=== PATIENT | male | born 1990 | race Caucasian/White ===

== ENCOUNTER 2017-05-09 14:37 | Emergency (ER) | payer MEDICARE, MEDICAID ==
[~2017-05-09] VITALS: Ht 165.1 cm; Wt 70.0 kg
[~2017-05-09 14:37] MED LIST: CITA40 PO; CLON.1 PO; DIVA500 PO; OLAN5 PO
[2017-05-09 14:49] VITALS: BP 111/73; PULSE 84; RESP 18; TEMP 98.9; O2SAT 98
--- NOTE | 2017-05-09 14:51 | PD ---
Physical Exam Date Seen by Provider: May 09, 2017 Time Seen by Provider: 14:48 Narrative 27 y/o male with Hx. Bipolar disorder brought in via EMS S/P fall at his senior living. No LOC. No HAGAN. No C/O pain or other injury. Vital signs reviewed. Patient stable. Awaiting Bed placement. [facility] Medical Record Reviewed: Yes Supervised Visit with ARMIDA: Yes Condition: Stable Miguel Angel Lopez May 09, 2017 14:51
--- NOTE | 2017-05-09 17:31 | PD ---
HPI Chief Complaint: Fall Time Seen by Provider: 17:30 Travel History International Travel<30 days: No Contact w/Intl Traveler<30days: No Traveled to known affect area: No History of Present Illness HPI 27-year-old male presents to emergency department with complaint of a numbness and tingling sensation in his head with dizziness, and change in vision that led him to stumble and fall over hitting the right side of his face at approximately 12 PM today. Denies loss of consciousness. He is resident at [facility]. His symptoms have already subsided and patient has no current complaints, except for right-sided facial pain from where he hit his face. There are no abrasions, lacerations, swelling to the area where the patient says he hit his face. He denies numbness and tingling of his head, dizziness, change in vision at this time. Denies headache, lightheadedness. Denies nausea, vomiting. Denies neck pain or back pain. Denies chest pain, shortness of breath. He denies history of hydrocephalus. Has not taken any medications or tried any treatment to alleviate his symptoms. Symptoms are mild in severity. Has no other medical complaints. No other modifying factors or associated signs and symptoms. PFSH Past Medical History ADHD: Yes Bipolar Disorder: Yes Anxiety: Yes Depression: Yes Cardiovascular Problems: No (See EMR) Diminished Hearing: No Genitourinary: No Immune Disorder: No Neurologic: Yes Psychiatric: Yes (Schizophrenia) Reproductive: No Respiratory: No Schizophrenia: Yes Tetanus Vaccination: < 5 Years ?: Not Past Surgical History Other Surgery: No Social History Alcohol Use: No Tobacco Use: No Substance Use: Yes (THC) Allergies-Medications (Allergen,Severity, Reaction): Coded Allergies: Abilify (Verified Allergy, Severe, 05/09/17) Penicillin (Verified Allergy, Severe, 05/09/17) Reported Meds & Prescriptions Reported Meds & Active Scripts Active Reported Olanzapine 10 Mg Tab 10 Mg PO BID Enalapril (Enalapril Maleate) 5 Mg Tab 5 Mg PO DAILY Docusate Sodium 100 Mg Cap 100 Mg PO DAILY Divalproex ER (Divalproex Sodium) 500 Mg Tab 500 Mg PO DAILY Diphenhydramine (Diphenhydramine HCl) 25 Mg Cap 50 Mg PO HS PRN Citalopram (Citalopram Hydrobromide) 40 Mg Tab 40 Mg PO DAILY Review of Systems Except as stated in HPI: all other systems reviewed are Neg Physical Exam Narrative GENERAL: Well-nourished, well-developed male patient, in no acute distress SKIN: Warm and dry. HEAD: Atraumatic. Normocephalic. No facial or scalp abrasions or lacerations noted. No facial edema noted. No facial droop noted. Tongue midline. Nose to finger test normal. EYES: Pupils equal and round at 3 mm with brisk reaction. No scleral icterus. No injection or drainage. No raccoon eyes. No orbital tenderness on palpation bilaterally. ENT: Mucosa pink and moist. No erythema or exudates. No uvular edema. No uvular , palatal, or tonsillar deviation. Airway patent. Nares without nasal blood, purulent drainage or septal hematoma. No rhinorrhea. EARS: Bilateral pinnae and external canals appear within normal limits. Bilateral tympanic membranes without erythema, dullness, hemotympanum or perforation. No otorrhea. No feldman signs. NECK: Moving freely. Trachea midline. No lymphadenopathy. Active rotation of the neck greater than 45 left and right. No midline point tenderness on palpation of the cervical spine. No obvious deformities. CHEST: No retractions or use of accessory muscles. CARDIOVASCULAR: Regular rate and rhythm. No murmur appreciated. RESPIRATORY: No accessory muscle use. Clear to auscultation. Breath sounds equal bilaterally. GASTROINTESTINAL: Flat. MUSCULOSKELETAL: No obvious deformities. No clubbing. No cyanosis. No edema. BACK: No midline Point tenderness on palpation of the lumbar or thoracic spine. No obvious deformities. Patient sitting up in bed at 90. Ambulatory in the room with normal gait. NEUROLOGICAL: Awake and alert. Oriented 4. No obvious cranial nerve deficits. Motor grossly within normal limits. Normal speech. No midline drift. No ataxia. Moves all extremities. 5/5 strength to all extremities. Sensory intact. PSYCHIATRIC: Appropriate mood and affect; insight and judgment normal. Data Data Last Documented VS Vital Signs Date Time Temp Pulse Resp B/P Pulse Ox O2 Delivery O2 Flow Rate FiO2 05/09/17 14:49 98.9 84 18 111/73 98 Orders Electrocardiogram (05/09/17 ) MDM Medical Decision Making Medical Screen Exam Complete: Yes Emergency Medical Condition: Yes Medical Record Reviewed: Yes Differential Diagnosis Near syncope, syncope, electrolyte imbalance Narrative Course 27-year-old male with near syncopal episode today. When he fell he hit the right side of his face and denies loss of consciousness. Neuro exam is unremarkable. I spoke with Dr. mcleod, my attending physician, and he recommended EKG. EKG ordered. 1744: Dr. Hidalgo called and said the EKG has some abnormal findings. Dr. Hidalgo is going to talk to Dr. madera and call me back with the plan of care. 1754: Dr. Coleman spoke with Dr. madera and is recommending outpatient follow-up with Dr. Dominguez, supervisor joiners for outpatient Holter monitoring and industrial welder for conduction abnormalities found on EKG. This was discussed with the patient and he verbalized understanding and agreement. [facility] Instructed patient to follow up with primary care provider. Patient verbalizes understanding and agreement with treatment plan. Patient is medically cleared and stable for discharge. Discussed reasons to return to the emergency department. Patient agrees with treatment plan. The patients vital signs are stable and the patient is stable for outpatient follow-up and treatment. Patient discharged home, stable and in no acute distress. Diagnosis Primary Impression: Near syncope Additional Impression: Abnormal EKG Referrals: Candelario Borges MD Can Reconditioner Primary Care Physician Patient Instructions: General Instructions, Near Syncope (ED) Additional Instructions: Follow-up with Dr. Dominguez, supervisor joiners for outpatient Holter monitor Follow-up with industrial welder for conduction abnormalities on EKG Follow-up with primary care provider Return to the emergency department immediately with worsening of symptoms , Med/Other Pt SpecificInfo: No Meds Exist/No RX given Disposition: 01 DISCHARGE HOME Condition: Stable Ale Chavez May 09, 2017 17:30 Ale Chavez May 09, 2017 17:30
[2017-05-09] MEDS ORDERED: CITA40TA4 PO (17:32)
[2017-05-09] MEDS ORDERED: DIPH25CA PO (17:32)
[2017-05-09] MEDS ORDERED: ENAL5TAB PO (17:32)
[2017-05-09] MEDS ORDERED: OLAN10TA PO (17:32)
[2017-05-09] MEDS ORDERED: DIVA500T3 PO (17:32)
[2017-05-09] MEDS ORDERED: DOCU100C PO (17:32)
--- NOTE | 2017-05-09 17:57 | PD ---
Data Data Last Documented VS Vital Signs Date Time Temp Pulse Resp B/P Pulse Ox O2 Delivery O2 Flow Rate FiO2 05/09/17 14:49 98.9 84 18 111/73 98 Orders Electrocardiogram (05/09/17 ) [facility] Supervised Visit with ARMIDA: Yes Narrative Course The history, exam, and medical decision-making in the associated mid-level provider note were completed with my assistance. I reviewed and agree with the findings presented. I attest that I had a [id number] encounter with the patient on the same day, and personally performed and documented my assessment and findings in the medical record. *My assessment and Findings: 27 year old man with near syncope type symptoms. He coughs enough that he hit his face. He denies losing consciousness completely. He looks overall well. He has a history of schizophrenia resides in a nursing facility. His EKG is significant for 1. To be a shortened OR interval with delta wave noticeable in several leads. He does have a little bit of ectopy as well. This may represent true WPW. It's unclear if this is related to his new significant symptoms or not. Nonetheless, I discussed with Dr. madera, personal carer for cardiology. Will recommend close outpatient follow cardiology, Holter monitor, EP referral. Diagnosis Primary Impression: Near syncope Additional Impression: Abnormal EKG Condition: Stable Oseas Hidalgo MD May 09, 2017 17:57
--- NOTE | 2017-05-10 15:44 | EKG ---
Date Performed: 05/09/2017 Time Performed: 17:38:51 PTAGE: 27 years EKG: Sinus rhythm INTERMITTENT VENTRICULAR PREEXCITATION/WPW NONSPECIFIC ST ELEVATION ABNORMAL ECG PREVIOUS TRACING : 04/26/2016 16.53 DOCTOR: Candelario Borges Interpretating Date/Time 05/10/2017 15:40:37
== END 2017-05-09 18:35 | disposition home or self-care (01) ==
LOC: NEPK 14:37
DX: R55 Syncope and collapse (principal); R94.31 Abnormal electrocardiogram [ECG] [EKG]; R20.0 Anesthesia of skin; R20.2 Paresthesia of skin; R42 Dizziness and giddiness; R51 Headache; F31.9 Bipolar disorder, unspecified; F90.9 Attention-deficit hyperactivity disorder, unspecified type; F20.9 Schizophrenia, unspecified
CPT/HCPCS: 93005; 99283

== ENCOUNTER 2017-06-06 11:04 | Emergency (ER) | payer MEDICARE, MEDICAID ==
[~2017-06-06] VITALS: Ht 162.6 cm; Wt 71.5 kg
[~2017-06-06 11:04] MED LIST changes: -CITA40 PO; +CITA40TA4 PO; -CLON.1 PO; +DIPH25CA PO; -DIVA500 PO; +DIVA500T3 PO; +DOCU100C PO; +ENAL5TAB PO; +OLAN10TA PO; -OLAN5 PO
[2017-06-06 11:14] VITALS: BP 117/74; PULSE 99; RESP 19; TEMP 98.3; O2SAT 96
--- NOTE | 2017-06-06 11:18 | PD ---
HPI . BA suicidal behavior Chief Complaint: Psychiatric Symptoms Time Seen by Provider: 11:18 Travel History International Travel<30 days: No Contact w/Intl Traveler<30days: No Traveled to known affect area: No History of Present Illness HPI 27-year-old male with history of schizophrenia here under Quinn act for suicidal behavior. Patient resides in assisted living facility and was found with a extension cord around his neck. It was believed by the personnel that he was trying to commit suicide. Patient tells me that he is going through a tough breakup. He recently was dumped by his ex-girlfriend who is now dating his best friend. He tells me has a new girlfriend, however he really wishes that it was his prior girlfriend. He tells me has no suicidal or homicidal thoughts. He says he is sad about the breakup, and was only trying to force himself to pass out so that he could rest instead of thinking about the loss of his ex-girlfriend. He tells me he is not suicidal and is not homicidal. He says he is a very caring and compassionate person and it does not want to harm anyone. He denies any illegal drug use. PFSH Past Medical History ADHD: Yes Bipolar Disorder: Yes Anxiety: Yes Depression: Yes Cardiovascular Problems: No (See EMR) Diminished Hearing: No Genitourinary: No Immune Disorder: No Neurologic: Yes Psychiatric: Yes (Schizophrenia) Reproductive: No Respiratory: No Schizophrenia: Yes Past Surgical History Other Surgery: No Social History Alcohol Use: No Tobacco Use: No Substance Use: Yes (THC) Allergies-Medications (Allergen,Severity, Reaction): Coded Allergies: aripiprazole (Unverified Allergy, Severe, 06/06/17) penicillin G (Unverified Allergy, Severe, 06/06/17) Reported Meds & Prescriptions Reported Meds & Active Scripts Active Reported Olanzapine 10 Mg Tab 10 Mg PO BID Enalapril (Enalapril Maleate) 5 Mg Tab 5 Mg PO DAILY Docusate Sodium 100 Mg Cap 100 Mg PO DAILY Divalproex ER (Divalproex Sodium) 500 Mg Tab 500 Mg PO DAILY Diphenhydramine (Diphenhydramine HCl) 25 Mg Cap 50 Mg PO HS PRN Citalopram (Citalopram Hydrobromide) 40 Mg Tab 40 Mg PO DAILY Review of Systems General / Constitutional: No: Fever Eyes: No: Visual changes HENT: No: Headaches Cardiovascular: No: Chest Pain or Discomfort Respiratory: No: Shortness of Breath Gastrointestinal: No: Abdominal Pain Genitourinary: No: Dysuria Musculoskeletal: No: Pain Skin: No Rash Neurologic: No: Weakness Psychiatric: Positive: Suicidal Ideations, Disorder of Thought, No: Depression Endocrine: No: Polydipsia Hematologic/Lymphatic: No: Easy Bruising Physical Exam Narrative GENERAL: AAO x 3, no acute distress, Well-nourished, well-developed patient. SKIN: Warm and dry. No visible rashes. slight erythema around the neck HEAD: Normocephalic and atraumatic. EYES: No scleral icterus. No injection or drainage. EOM intact, PERRLA ENT: No nasal drainage noted. Mucous membranes pink. Airway patent. NECK: Supple, trachea midline. No JVD. No lymphadenopathy CARDIOVASCULAR: Regular rate and rhythm without murmurs, gallops, or rubs. RESPIRATORY: Breath sounds equal bilaterally. No accessory muscle use. No rhonchi or rales. GASTROINTESTINAL: Abdomen soft, non-tender, nondistended. No rebound or guarding EXTREMITIES: No cyanosis or edema. BACK: No obvious deformity. No CVA tenderness. NEURO: CN II-12 intact, burr filer strength normal b/l, UE and LE 5/5, no focal deficits PSYCH: AAO x 3, normal affect. Data Data Last Documented VS Vital Signs Date Time Temp Pulse Resp B/P (MAP) Pulse Ox O2 Delivery O2 Flow Rate FiO2 06/06/17 11:21 98.3 99 19 117/74 (88) 96 Room Air Orders Orders Complete Blood Count With Diff (06/06/17 11:18) Comprehensive Metabolic Panel (06/06/17 11:18) Psych Screen (06/06/17 11:18) Drug Screen, Random Urine (06/06/17 11:18) ^ Sitter (06/06/17 11:41) Diet Regular Basic (06/06/17 Lunch) Labs Laboratory Tests Test 06/06/17 11:30 White Blood Count 9.6 TH/MM3 Red Blood Count 4.89 MIL/MM3 Hemoglobin 16.3 GM/DL Hematocrit 47.0 % Mean Corpuscular Volume 96.1 FL Mean Corpuscular Hemoglobin 33.2 PG Mean Corpuscular Hemoglobin Concent 34.6 % Red Cell Distribution Width 13.0 % Platelet Count 188 TH/MM3 Mean Platelet Volume 10.0 FL CBC Comment AUTO DIFF Differential Total Cells Counted 100 Neutrophils % (Manual) 75 % Band Neutrophils % 4 % Lymphocytes % 13 % Monocytes % 7 % Eosinophils % 1 % Neutrophils # (Manual) 7.6 TH/MM3 Differential Comment FINAL DIFF MANUAL Platelet Estimate NORMAL Platelet Morphology Comment NORMAL Red Cell Morphology Comment NORMAL Blood Urea Nitrogen 6 MG/DL Creatinine 0.86 MG/DL Random Glucose 93 MG/DL Total Protein 8.6 GM/DL Albumin 3.7 GM/DL Calcium Level 9.4 MG/DL Alkaline Phosphatase 72 U/L Aspartate Amino Transf (AST/SGOT) 25 U/L Alanine Aminotransferase (ALT/SGPT) 30 U/L Total Bilirubin 0.2 MG/DL Sodium Level 141 MEQ/L Potassium Level 4.2 MEQ/L Chloride Level 106 MEQ/L Carbon Dioxide Level 27.1 MEQ/L Anion Gap 8 MEQ/L Estimat Glomerular Filtration Rate 108 ML/MIN Urine Opiates Screen NEG Urine Barbiturates Screen NEG Urine Amphetamines Screen NEG Urine Benzodiazepines Screen NEG Urine Cocaine Screen NEG Urine Cannabinoids Screen NEG MDM Medical Decision Making Medical Screen Exam Complete: Yes Emergency Medical Condition: Yes Medical Record Reviewed: Yes Differential Diagnosis suicidal ideation, schizophrenia, depression Narrative Course 27-year-old male here under Quinn act for suicidal behavior. On examination there are no gross abnormalities. I recommend labs and toxicology screen. If they're within normal limits, patient will be medically cleared for psych screen. Diagnosis Primary Impression: Suicidal behavior Qualified Codes: T14.91 - Suicide attempt Condition: Stable Rohini Roblero Jun 06, 2017 11:18
[2017-06-06 11:21] VITALS: BP 117/74; PULSE 99; RESP 19; TEMP 98.3; O2SAT 96
[2017-06-06 12:00] LABS: MEAN CELL VOLUME 96.1 FL (80.0-100.0); MEAN CORPUSCULAR HEMOGLOBIN 33.2 PG (27.0-34.0); MEAN CORPUSCULAR HGB CONC 34.6 % (32.0-36.0); PLATELET COUNT 188 TH/MM3 (150-450); RED BLOOD COUNT 4.89 MIL/MM3 (4.50-5.90); WHITE BLOOD COUNT 9.6 TH/MM3 (4.0-11.0)
[2017-06-06 12:03] LABS: HEMO FLAGS AUTO DIFF
[2017-06-06 12:13] LABS: ALT (GPT) 30 U/L (12-78); ANION GAP 8 MEQ/L (5-15); AST (GOT) 25 U/L (15-37); BICARBONATE 27.1 MEQ/L (21.0-32.0); BLOOD UREA NITROGEN 6 MG/DL (7-18); CHLORIDE 106 MEQ/L (98-107); GLOMERULAR FILTRATION RATE 108 ML/MIN (>89); POTASSIUM 4.2 MEQ/L (3.5-5.1); SODIUM (NA) 141 MEQ/L (136-145)
[2017-06-06 12:15] LABS: ALKALINE PHOSPHATASE 72 U/L (45-117); TOTAL BILIRUBIN ADULT 0.2 MG/DL (0.2-1.0)
[2017-06-06 12:39] LABS: BANDS 4 % (0-6); EOSINOPHILS 1 % (0-4); NEUTROPHIL # MANUAL DIFF 7.6 TH/MM3 (1.8-7.7); PLATELET ESTIMATE SMEAR NORMAL (NORMAL); PLATELET MORPHOLOGY NORMAL (NORMAL); POLYS (SEG NEUTROPHILS) 75 % (16-70); SCAN/DIFF FINAL DIFF MANUAL; WBC DIFF SAMPLE 100
[2017-06-06] MEDS ORDERED: OLAN5TAB PO (13:12)
[2017-06-06 16:47] VITALS: BP 115/65
[2017-06-06 18:00] VITALS: BP 96/53; PULSE 64; RESP 16; O2SAT 96
[2017-06-06] MEDS ORDERED: diphenhydrAMINE HCL 50 MG CAP PO PRN (18:00)
[2017-06-06] MEDS: DIVALPROEX SODIUM E.R. 500 MG TAB PO SCH (20:58)
[2017-06-06] MEDS: OLANZapine 10 MG TAB PO SCH (20:58)
[2017-06-06 22:03] VITALS: BP 94/52; PULSE 57; RESP 18; O2SAT 98
[2017-06-07 02:31] VITALS: BP 104/59; PULSE 64; RESP 16; O2SAT 98
[2017-06-07] MEDS ORDERED: CITALOPRAM HYDROBROMIDE 40 MG TAB PO SCH (09:00)
[2017-06-07] MEDS ORDERED: ENALAPRIL MALEATE 5 MG TAB PO SCH (09:00)
[2017-06-07] MEDS ORDERED: DOCUSATE SODIUM 100 MG CAP PO SCH (09:00)
[2017-06-07] MEDS: DIVALPROEX SODIUM E.R. 500 MG TAB PO SCH (09:15)
[2017-06-07] MEDS: OLANZapine 10 MG TAB PO SCH (09:15)
[2017-06-07 12:40] VITALS: BP 98/56; PULSE 72; RESP 20; TEMP 93
--- NOTE | 2017-06-07 13:26 | PD ---
Physical Exam Time Seen by Provider: 13:[address] Tillman has evaluated this patient and lifted the Quinn act and the patient will be discharged to [facility]. Data Data Last Documented VS Vital Signs Date Time Temp Pulse Resp B/P (MAP) Pulse Ox O2 Delivery O2 Flow Rate FiO2 06/07/17 12:40 93.0 72 20 98/56 (70) 06/07/17 02:31 98 06/06/17 18:00 Room Air Orders Orders Complete Blood Count With Diff (06/06/17 11:18) Comprehensive Metabolic Panel (06/06/17 11:18) Psych Screen (06/06/17 11:18) Drug Screen, Random Urine (06/06/17 11:18) ^ Sitter (06/06/17 11:41) Diet Regular Basic (06/06/17 Lunch) Citalopram (Celexa) (06/07/17 09:00) Diphenhydramine (Benadryl) (06/06/17 18:00) Divalproex Er (Depakote Er) (06/06/17 21:00) Docusate Sodium (Colace) (06/07/17 09:00) Enalapril (Vasotec) (06/07/17 09:00) Olanzapine (Zyprexa) (06/06/17 21:00) Diet Regular Basic (06/07/17 Breakfast) Diet Regular Basic (06/07/17 Lunch) Labs Laboratory Tests Test 06/06/17 11:30 White Blood Count 9.6 TH/MM3 Red Blood Count 4.89 MIL/MM3 Hemoglobin 16.3 GM/DL Hematocrit 47.0 % Mean Corpuscular Volume 96.1 FL Mean Corpuscular Hemoglobin 33.2 PG Mean Corpuscular Hemoglobin Concent 34.6 % Red Cell Distribution Width 13.0 % Platelet Count 188 TH/MM3 Mean Platelet Volume 10.0 FL CBC Comment AUTO DIFF Differential Total Cells Counted 100 Neutrophils % (Manual) 75 % Band Neutrophils % 4 % Lymphocytes % 13 % Monocytes % 7 % Eosinophils % 1 % Neutrophils # (Manual) 7.6 TH/MM3 Differential Comment FINAL DIFF MANUAL Platelet Estimate NORMAL Platelet Morphology Comment NORMAL Red Cell Morphology Comment NORMAL Blood Urea Nitrogen 6 MG/DL Creatinine 0.86 MG/DL Random Glucose 93 MG/DL Total Protein 8.6 GM/DL Albumin 3.7 GM/DL Calcium Level 9.4 MG/DL Alkaline Phosphatase 72 U/L Aspartate Amino Transf (AST/SGOT) 25 U/L Alanine Aminotransferase (ALT/SGPT) 30 U/L Total Bilirubin 0.2 MG/DL Sodium Level 141 MEQ/L Potassium Level 4.2 MEQ/L Chloride Level 106 MEQ/L Carbon Dioxide Level 27.1 MEQ/L Anion Gap 8 MEQ/L Estimat Glomerular Filtration Rate 108 ML/MIN Urine Opiates Screen NEG Urine Barbiturates Screen NEG Urine Amphetamines Screen NEG Urine Benzodiazepines Screen NEG Urine Cocaine Screen NEG Urine Cannabinoids Screen NEG MDM Supervised Visit with ARMIDA: No Narrative Course Dr. Tillman has evaluated this patient and lifted the Quinn act and the patient will be discharged to [facility], where he resides. The patient has contracted safety to both Dr. Tillman and the nurse. He denies suicidal or homicidal ideations at this time. The patient is mentally delayed and acts out a lot, according to the nurse. She has spoken with [facility] and they have no concerns of the patient returning to the facility. Patient is medically cleared for discharge. Diagnosis Primary Impression: Suicidal behavior Qualified Codes: T14.91 - Suicide attempt Referrals: Primary Care Physician Psychiatrist Patient Instructions: General Instructions, Mood Disorders (ED), Suicide Prevention for Adults (ED) Additional Instruction: Contract safety to your self and others Follow-up with psychiatry Follow-up with primary care provider Follow-up with Luis Enrique Gavin Return to the emergency department immediately with worsening of symptomse Med/Other Pt SpecificInfo: No Meds Exist/No RX given Disposition: 01 DISCHARGE HOME Condition: Stable Ale Chavez Jun 07, 2017 13:26
--- NOTE | 2017-06-07 13:37 | PD ---
History of Present Illness Chief Complaint: Psychiatric Symptoms Time Seen by Provider: 13:00 Travel History International Travel<30 Days: No Contact w/Intl Traveler<30days: No Known affected area: No Legal Status Legal Status: Quinn Act Quinn Act Signed By: Radha Quinn Act Comment: OFFICER Terrie RILEY #[id number] History of Present Illness: 27-year-old mentally retarded male [place] acted for putting an extension cord around his neck. Patient was apparently upset that his ex-girlfriend is now dating his best friend. Patient has a new girlfriend also. However he wishes he were with his ex-girlfriend. In any event, the patient denies any suicidal or homicidal ideation, plan or intent. He acted impulsively and states he wanted to pass out so he would not have to think about his ex-girlfriend. He is verbally sweetie for safety at this point and he is competent to do so. He lives in a [place] [facility] [place], that was called by our nurse, Destinee. Patient is welcome to return there and his thought very highly of for his general behavior. No psychosis. No alcohol or drugs. Cognition is baseline. PFSH Past Medical History ADHD: Yes Bipolar Disorder: Yes Anxiety: Yes Depression: Yes Diminished Hearing: No Genitourinary: No Immune Disorder: No Neurologic: Yes Psychiatric: Yes (Schizophrenia) Reproductive: No Respiratory: No Schizophrenia: Yes Past Surgical History Genitourinary Surgery: Yes (BLADDER AT A YOUNG AGE) Other Surgery: No Psychiatric History Psychiatric History Hx Psychiatric Treatment: SCHIZOPHRENIA. Patient does not appear schizophrenic to this physician. He does appear to have mild mental retardation. History of Inpatient Treatment: Yes Guns or firearms in home: No Social History Hx Alcohol Use: No Hx Tobacco Use: Yes Hx Substance Use: No Hx of Substance Use Treatment: No Allergies-Medications (Allergen,Severity, Reaction): Coded Allergies: aripiprazole (Unverified Allergy, Severe, 06/06/17) penicillin G (Unverified Allergy, Severe, 06/06/17) Reported Meds & Prescriptions Reported Meds & Active Scripts Active Reported Olanzapine 5 Mg Tab 5 Mg PO BID Enalapril (Enalapril Maleate) 5 Mg Tab 5 Mg PO DAILY Docusate Sodium 100 Mg Cap 100 Mg PO DAILY Divalproex ER (Divalproex Sodium) 500 Mg Tab 500 Mg PO DAILY Diphenhydramine (Diphenhydramine HCl) 25 Mg Cap 50 Mg PO HS PRN Citalopram (Citalopram Hydrobromide) 40 Mg Tab 40 Mg PO DAILY Review of Systems Except as stated in HPI: all other systems reviewed are Neg Exam Alert: Yes [place]: Person, Place, Date, Situation Mood: Calm Affect: Appropriate Speech: Clear, Logical Eye Contact: Normal Memory Intact: Immediate, Recent, Remote Insight/Judgement Adequate MDM Medical Decision Making Medical Record Reviewed: Yes Assessment/Plan Patient does not appear to qualify for Quinn act or involuntary psychiatric hospitalization. He acknowledges he made a mistake and would like to return to his [place] [facility] [place]. He is verbally sweetie for safety. Orders Orders Citalopram (Celexa) (06/07/17 09:00) Diphenhydramine (Benadryl) (06/06/17 18:00) Divalproex Er (Depakote Er) (06/06/17 21:00) Docusate Sodium (Colace) (06/07/17 09:00) Enalapril (Vasotec) (06/07/17 09:00) Olanzapine (Zyprexa) (06/06/17 21:00) Diet Regular Basic (06/07/17 Breakfast) Diet Regular Basic (06/07/17 Lunch) Diet Regular Basic (06/07/17 Dinner) Results Vital Signs Date Time Temp Pulse Resp B/P (MAP) Pulse Ox O2 Delivery O2 Flow Rate FiO2 06/07/17 12:40 93.0 72 20 98/56 (70) 06/07/17 02:31 64 16 104/59 (74) 98 06/06/17 22:03 57 18 94/52 (66) 98 06/06/17 18:00 64 16 96/53 (67) 96 Room Air 06/06/17 16:47 73 17 115/65 (82) 96 Diagnosis Primary Impression: Adjustment disorder with mixed disturbance of emotions and conduct Referrals: Primary Care Physician Psychiatrist Patient Instructions: General Instructions, Mood Disorders (ED), Suicide Prevention for Adults (ED) Additional Instructions: Contract safety to your self and others Follow-up with psychiatry Follow-up with primary care provider Follow-up with Luis Enrique Gavin Return to the emergency department immediately with worsening of symptomse Disposition: 01 DISCHARGE HOME Condition: Stable Jerad Tillman MD Jun 07, 2017 13:37
[2017-06-07 16:11] VITALS: BP 98/58; TEMP 98.3
== END 2017-06-07 16:21 | disposition home or self-care (01) ==
LOC: NEPD 11:04 → NEPJ 06-07 16:21
DX: F43.25 Adjustment disorder with mixed disturbance of emotions and conduct (principal)
CPT/HCPCS: 80053; 80307; 85007; 85027; 99284; Q0163